=== PATIENT | female | born 1970 | race Caucasian/White ===

== ENCOUNTER 2017-12-14 20:11 | Emergency (ER) | payer SELFPAY ==
[2017-12-14] MEDS ORDERED: Ketorolac 60 MG/2 ML SDV IM ONE (20:35)
--- NOTE | 2017-12-14 20:54 | EDM.PDOC ---
ED HPI GENERAL MEDICAL PROBLEM - General Chief Complaint: Upper Extremity Injury/Pain Stated Complaint: NECK PAIN Time Seen by Provider: 12/14/17 20:24 Source of Information: Reports: Patient History Limitations: Reports: No Limitations - History of Present Illness INITIAL COMMENTS - FREE TEXT/NARRATIVE: HISTORY AND PHYSICAL: History of present illness: Patient is a 47-year-old female who presents to the emergency room with complaints of right neck pain that radiates into her shoulder. She states she has been sleeping on the ground and believes that she "pinched nerve". She denies any injury, trauma or falls. Pain is increased with palpation of the trapezius muscle. She denies any numbness or tingling to the distal extremity. She denies any headache, change in vision, dizziness. She denies any fever, chills, chest pain, shortness of breath or cough. Denies any abdominal pain, nausea, vomiting, diarrhea or constipation. Eyes any chance of . Review of systems: As per history of present illness and below otherwise all systems reviewed and negative. Past medical history: As per history of present illness and as reviewed below otherwise noncontributory. Surgical history: As per history of present illness and as reviewed below otherwise noncontributory. Social history: No reported history of drug or alcohol abuse. Family history: As per history of present illness and as reviewed below otherwise noncontributory. Physical exam: General: Developed and well-nourished 47-year-old female. Alert and oriented. Nontoxic appearing and in no acute distress. HEENT: Atraumatic, normocephalic, pupils equal and reactive bilaterally, negative for conjunctival pallor or scleral icterus, mucous membranes moist, throat clear, neck supple, nontender, trachea midline. No drooling or trismus noted. No meningeal signs Lungs: Clear to auscultation, breath sounds equal bilaterally, chest nontender. Heart: S1S2, regular rate and rhythm without overt murmur Abdomen: Soft, nondistended, nontender. Negative for masses or hepatosplenomegaly. Negative for costovertebral tenderness. Pelvis: Stable nontender. Genitourinary: Deferred. Rectal: Deferred. C-spine/Back: No pinpoint vertebral tenderness upon palpation. No crepitus, step -offs or obvious deformities. Patient is ambulatory into the room and is able to walk on her heels and toes. Denies any numbness or tingling to the distal extremities. Denies any urinary or fecal incontinence. Does have muscular tenderness to the right trapezius extending into the supraspinatus muscle. She has strong radial pulse. Skin: Intact, warm, dry. No lesions or rashes noted. Extremities: Atraumatic, full range of motion without difficulty or deficits, negative for cords or calf pain. Neurovascular unremarkable. Neuro: Awake, alert, oriented. Cranial nerves II through XII unremarkable. Cerebellum unremarkable. Motor and sensory unremarkable throughout. Exam nonfocal. Notes: Patient is requesting something for pain at this time. I will give her Norflex and Toradol IM. She is agreeable to receiving an x-ray. Nursing staff noted that after the patient received the IM Toradol and Norflex she requested to be discharged to home as she felt that her child she had brought with her needed to use. She did not want to have the x-ray completed. Patient is signing out AGAINST MEDICAL ADVICE. Diagnostics: X-ray Therapeutics: Norflex, Toradol Impression: Neck pain Plan: Left AGAINST MEDICAL ADVICE Definitive disposition and diagnosis as appropriate pending reevaluation and review of above. Onset: Today Duration: Day(s): Location: Reports: Neck Right Shoulder Pain Score (Numeric/FACES): 8 - Related Data Allergies Allergy/AdvReac Type Severity Reaction Status Date / Time Penicillins Allergy Hives Verified 12/14/17 20:24 Home Meds: Home Meds Sertraline HCl [Zoloft] 50 mg PO DAILY 12/14/17 [History] Past Medical History - Past Health History Medical/Surgical History: Denies Medical/Surgical History Social & Family History - Tobacco Use Smoking Status *Q: Never Smoker Review of Systems - Review of Systems Review Of Systems: ROS reveals no pertinent complaints other than HPI. ED EXAM, GENERAL - Physical Exam Exam: See Below (See dictation) Course - Vital Signs Last Recorded V/S: Last Vital Signs Temp 97.6 F 12/14/17 20:26 Pulse 83 12/14/17 20:26 Resp 18 12/14/17 20:26 BP 150/72 H 12/14/17 20:26 Pulse Ox 96 12/14/17 20:26 - Orders/Labs/Meds Orders: Active Orders 24 hr Category Date Time Status Cervical Spine 2V or 3V [CR] Stat Exams 12/14/17 20:35 Ordered Meds: Medications Discontinued Medications Generic Name Dose Route Start Last Admin Trade Name Yonathan PRN Reason Stop Dose Admin Ketorolac Tromethamine 60 mg 12/14/17 20:35 12/14/17 20:40 Toradol IM 12/14/17 20:36 60 mg ONETIME ONE Administration Orphenadrine Citrate 60 mg 12/14/17 20:35 12/14/17 20:40 Norflex IM 12/14/17 20:36 60 mg NOW STA Administration Departure - Departure Time of Disposition: 20:53 Disposition: Against Medical Advice 07 Clinical Impression: Neck pain - Discharge Information Referrals: PCP,None [Primary Care Provider] - - My Orders Last 24 Hours: My Active Orders 12/14/17 20:35 Cervical Spine 2V or 3V [CR] Stat - Assessment/Plan Last 24 Hours: My Active Orders 12/14/17 20:35 Cervical Spine 2V or 3V [CR] Stat
== END 2017-12-14 20:49 | disposition left against medical advice (07) ==
LOC: MW.ED 20:11
DX: M54.2 Cervicalgia (principal); Z88.0 Allergy status to penicillin
CPT/HCPCS: 96372; 99283; J1885; J2360

== ENCOUNTER 2019-05-10 06:48 | Emergency (ER) | payer SELFPAY ==
--- NOTE | 2019-05-10 06:53 | EDM.PDOC ---
ED HPI GENERAL MEDICAL PROBLEM - General Stated Complaint: HEADACHES AND DIZZINESS Time Seen by Provider: 05/10/19 06:50 Source of Information: Reports: Patient History Limitations: Reports: No Limitations - History of Present Illness INITIAL COMMENTS - FREE TEXT/NARRATIVE: History of present illness: []Patient had an episode last night where she had a headache, dizziness, blurry vision and a brief period of inability to find her words. She denies any numbness, tingling, weakness in her extremities, nausea, vomiting, or any recent illnesses. She does have asthma and lately she is waking up in the middle the night gasping for air. She has not had any coughing or chest pain. Patient denies she is a smoker. She is raising her daughters 3-year-old and feeling very stressed with a new job and her daughter's addiction to methamphetamines. Patient's symptoms are very mild now. Review of systems: As per history of present illness and below otherwise all systems reviewed and negative. Past medical history: As per history of present illness and as reviewed below otherwise noncontributory. Surgical history: As per history of present illness and as reviewed below otherwise noncontributory. Social history: No reported history of drug or alcohol abuse. Family history: As per history of present illness and as reviewed below otherwise noncontributory. Physical exam: General: Well developed, well nourished in NAD HEENT: Atraumatic, normocephalic, pupils reactive, negative for conjunctival pallor or scleral icterus, mucous membranes moist, throat clear, neck supple, nontender, trachea midline. TMs clear, no sinus tenderness to palpation Lungs: Clear to auscultation, breath sounds equal bilaterally, chest nontender. Heart: S1S2, regular, negative for clicks, rubs, or JVD. Abdomen: NABS, Soft, nondistended, nontender. Negative for masses or hepatosplenomegaly. Negative for costovertebral tenderness. Pelvis: Stable nontender. Genitourinary: Deferred. Rectal: Deferred. Extremities: Atraumatic, negative for cords or calf pain. Neurovascular unremarkable. Neuro: Awake, alert, oriented. Cranial nerves II through XII unremarkable. Cerebellum unremarkable. Motor and sensory unremarkable throughout. Exam nonfocal. Skin:warm and dry Diagnostics: CT head-negative chronic maxillary sinus disease, CBC, chemistry, EKG, chest x- ray Therapeutics: none ED Course: stable, discussed with Dr. Greer, she requested a referral be sent to her and she can follow-up with primary care for outpatient workup. Impression: tia Prescriptions: none Plan: Take meds as directed, follow up with your primary care physician, return to ER if symptoms worsen or change. Definitive disposition and diagnosis as appropriate pending reevaluation and review of above. - Related Data Allergies Allergy/AdvReac Type Severity Reaction Status Date / Time Penicillins Allergy Hives Verified 05/10/19 06:56 Home Meds: Home Meds . [No Known Home Meds] 05/10/19 [History] Past Medical History - Past Health History Medical/Surgical History: Denies Medical/Surgical History ED ROS GENERAL - Review of Systems Review Of Systems: See Below - Physical Exam Exam: See Below Course - Vital Signs Last Recorded V/S: Last Vital Signs Temp 96.6 F 05/10/19 06:57 Pulse 75 05/10/19 06:57 Resp 18 05/10/19 06:57 BP 128/68 05/10/19 06:57 Pulse Ox 91 L 05/10/19 06:57 - Orders/Labs/Meds Orders: Active Orders 24 hr Category Date Time Status EKG Documentation Completion [RC] STAT Care 05/10/19 07:19 Active UA W/MICROSCOPIC [URIN] Stat Lab 05/10/19 07:03 Ordered Sodium Chloride 0.9% [Saline Flush] Med 05/10/19 07:03 Active 10 ml FLUSH ASDIRECTED PRN Sodium Chloride 0.9% [Saline Flush] Med 05/10/19 07:03 Active 2.5 ml FLUSH ASDIRECTED PRN Saline Lock Insert [OM.PC] Stat Oth 05/10/19 07:03 Ordered Medication Orders Sodium Chloride (Saline Flush) 10 ml FLUSH ASDIRECTED PRN PRN Reason: Keep Vein Open Last Admin: 05/10/19 07:36 Dose: 10 ml Sodium Chloride (Saline Flush) 2.5 ml FLUSH ASDIRECTED PRN PRN Reason: Keep Vein Open Last Admin: 05/10/19 07:36 Dose: 2.5 ml Labs: Laboratory Tests 05/10/19 05/10/19 05/10/19 Range/Units 07:30 07:30 07:30 WBC 9.59 (4.0-11.0) K/uL RBC 4.71 (4.30-5.90) M/uL Hgb 12.1 (12.0-16.0) g/dL Hct 38.0 (36.0-46.0) % MCV 80.7 (80.0-98.0) fL MCH 25.7 L (27.0-32.0) pg MCHC 31.8 (31.0-37.0) g/dL RDW Std Deviation 51.1 (28.0-62.0) fl RDW Coeff of Shawn 17 H (11.0-15.0) % Plt Count 266 (150-400) K/uL MPV 10.00 (7.40-12.00) fL Neut % (Auto) 55.6 (48.0-80.0) % Lymph % (Auto) 28.8 (16.0-40.0) % Kershaw % (Auto) 9.6 (0.0-15.0) % Eos % (Auto) 5.5 (0.0-7.0) % Baso % (Auto) 0.5 (0.0-1.5) % Neut # (Auto) 5.3 (1.4-5.7) K/uL Lymph # (Auto) 2.8 H (0.6-2.4) K/uL Kershaw # (Auto) 0.9 H (0.0-0.8) K/uL Eos # (Auto) 0.5 (0.0-0.7) K/uL Baso # (Auto) 0.1 (0.0-0.1) K/uL Nucleated RBC % 0.0 /100WBC Nucleated RBCs # 0 K/uL Sodium 143 (136-145) mmol/L Potassium 3.6 (3.5-5.1) mmol/L Chloride 107 (98-107) mmol/L Carbon Dioxide 28.7 (21.0-32.0) mmol/L BUN 10 (7.0-18.0) mg/dL Creatinine 0.8 (0.6-1.0) mg/dL Est Cr Clr Drug Dosing 77.38 mL/min Estimated GFR (MDRD) > 60.0 ml/min Glucose 107 H (74-106) mg/dL Calcium 8.9 (8.5-10.1) mg/dL Total Bilirubin 0.4 (0.2-1.0) mg/dL AST 17 (15-37) IU/L ALT 14 (14-63) IU/L Alkaline Phosphatase 98 (46-116) U/L Total Protein 7.5 (6.4-8.2) g/dL Albumin 4.0 (3.4-5.0) g/dL Globulin 3.5 (2.6-4.0) g/dL Albumin/Globulin Ratio 1.1 (0.9-1.6) TSH 3rd Generation 1.12 (0.36-3.74) uIU/mL Meds: Medications Generic Name Dose Route Start Last Admin Trade Name Freq PRN Reason Stop Dose Admin Sodium Chloride 10 ml 05/10/19 07:03 05/10/19 07:36 Saline Flush FLUSH 10 ml ASDIRECTED PRN Administration Keep Vein Open Sodium Chloride 2.5 ml 05/10/19 07:03 05/10/19 07:36 Saline Flush FLUSH 2.5 ml ASDIRECTED PRN Administration Keep Vein Open Discontinued Medications Generic Name Dose Route Start Last Admin Trade Name Freq PRN Reason Stop Dose Admin Sodium Chloride 1,000 mls @ 999 mls/hr 05/10/19 07:19 05/10/19 07:36 Normal Saline IV 05/10/19 08:19 999 mls/hr .Bolus ONE Administration Departure - Departure Time of Disposition: 08:30 Disposition: Home, Self-Care 01 Condition: Good Clinical Impression: TIA (transient ischemic attack) - Discharge Information *PRESCRIPTION DRUG MONITORING PROGRAM REVIEWED*: Not Applicable *COPY OF PRESCRIPTION DRUG MONITORING REPORT IN PATIENT CHRISSY: Not Applicable Referrals: PCP,None [Primary Care Provider] - Ellen Greer MD [Physician] - Additional Instructions: The following information is given to patients seen in the emergency department who are being discharged to home. This information is to outline your options for follow-up care. We provide all patients seen in our emergency department with a follow-up referral. The need for follow-up, as well as the timing and circumstances, are variable depending upon the specifics of your emergency department visit. If you don't have a primary care physician on staff, we will provide you with a referral. We always advise you to contact your personal physician following an emergency department visit to inform them of the circumstance of the visit and for follow-up with them and/or the need for any referrals to a consulting specialist. The emergency department will also refer you to a specialist when appropriate. This referral assures that you have the opportunity for follow-up care with a specialist. All of these measure are taken in an effort to provide you with optimal care, which includes your follow-up. Under all circumstances we always encourage you to contact your private physician who remains a resource for coordinating your care. When calling for follow-up care, please make the office aware that this follow-up is from your recent emergency room visit. If for any reason you are refused follow-up, please contact the [facility] Emergency Department at and asked to speak to the emergency department charge nurse. Take meds as directed, follow up with your primary care physician, return to ER if symptoms worsen or change. [facility] Primary Care [address] [place] [id number] [facility] Specialty Care - Neurology Professional Building [address] [place] [address], [address] [place] [address] - My Orders Last 24 Hours: My Active Orders 05/10/19 07:03 UA W/MICROSCOPIC [URIN] Stat Sodium Chloride 0.9% [Saline Flush] 10 ml FLUSH ASDIRECTED PRN Sodium Chloride 0.9% [Saline Flush] 2.5 ml FLUSH ASDIRECTED PRN Saline Lock Insert [OM.PC] Stat 05/10/19 07:19 EKG Documentation Completion [RC] STAT - Assessment/Plan Last 24 Hours: My Active Orders 05/10/19 07:03 UA W/MICROSCOPIC [URIN] Stat Sodium Chloride 0.9% [Saline Flush] 10 ml FLUSH ASDIRECTED PRN Sodium Chloride 0.9% [Saline Flush] 2.5 ml FLUSH ASDIRECTED PRN Saline Lock Insert [OM.PC] Stat 05/10/19 07:19 EKG Documentation Completion [RC] STAT
[2019-05-10] MEDS ORDERED: Sodium Chloride 0.9% 10 ML Syringe FLUSH PRN (07:03)
[2019-05-10] MEDS ORDERED: Sodium Chloride 0.9% 2.5 ML Syringe FLUSH PRN (07:03)
[2019-05-10] MEDS ORDERED: Sodium Chloride 0.9% 1,000 ML IV ONE (07:19)
[2019-05-10 08:03] LABS: BLOOD UREA NITROGEN,BUN 10 mg/dL (7.0-18.0); CARBON DIOXIDE,CO2 28.7 mmol/L (21.0-32.0); CHLORIDE,CL 107 mmol/L (98-107); GLUCOSE RANDOM 107 mg/dL (74-106); POTASSIUM,K 3.6 mmol/L (3.5-5.1); SODIUM,NA 143 mmol/L (136-145)
--- NOTE | 2019-05-10 08:10 | CR ---
INDICATION: Dizziness COMPARISON: none TECHNIQUE: PA chest performed at 7:46 a.m. FINDINGS: The lungs are clear. There is no evidence of pneumothorax. The heart, mediastinum and pulmonary vessels are of normal size. There is no evidence of pleural fluid. IMPRESSION: Negative chest. Dictated by Moises Wang MD @ May 10 2019 8:08AM Signed by Dr. Moises Wang @ May 10 2019 8:08AM
--- NOTE | 2019-05-10 08:15 | CT ---
INDICATION: Dizziness COMPARISON: none TECHNIQUE: A CT volumetric acquisition was performed of the brain without IV contrast. FINDINGS: There is no evidence of a subdural or epidural hematoma. There is no evidence of subarachnoid hemorrhage or intraparenchymal bleeding. The CT images reveal a normal appearance of the cerebral ventricles and basal cisterns. There is no evidence of localized tissue infarction or mass effect. There is normal chaves white matter differentiation. The mastoid air cells and middle ear cavities are clear. The calvarium appears intact. There is inflammatory mucoperiosteal thickening within the left maxillary sinus and there is a small mucous retention cysts within the floor of the right maxillary sinus. The ethmoid and sphenoid air cells are clear. The frontal air cells are incompletely developed. IMPRESSION: No evidence of intracranial hemorrhage, infarct or mass effect. Inflammatory changes noted within the maxillary sinuses. Please note that all CT scans at this facility use dose modulation, iterative reconstruction, and/or weight-based dosing when appropriate to reduce radiation dose to as low as reasonably achievable. Dictated by Moises Wang MD @ May 10 2019 8:07AM Signed by Dr. Moises Wang @ May 10 2019 8:14AM
== END 2019-05-10 08:50 | disposition home or self-care (01) ==
LOC: MW.ED 06:48
DX: G45.9 Transient cerebral ischemic attack, unspecified (principal); Z88.0 Allergy status to penicillin
CPT/HCPCS: 36415; 70450; 71045; 80053; 84443; 85025; 93005; 96360; 99284; J7040; 99283

== ENCOUNTER 2022-10-26 00:21 | Inpatient (IN) | payer MEDICAID ==
[2022-10-26] MEDS ORDERED: LORazepam 2 MG/ML SDV IVPUSH ONE (00:27)
[2022-10-26] MEDS ORDERED: Sodium Chloride 0.9% 2.5 ML Syringe FLUSH PRN (00:27)
[2022-10-26] MEDS ORDERED: Albuterol/Ipratropium 3.0-0.5 MG/3 ML Neb Soln NEB STA (00:27)
[2022-10-26] MEDS ORDERED: Sodium Chloride 0.9% 10 ML Syringe FLUSH PRN (00:27)
[2022-10-26] MEDS ORDERED: Albuterol 0.083% 2.5 MG/3 ML Neb Soln NEB STA (00:31)
[2022-10-26 01:06] LABS: BLOOD UREA NITROGEN,BUN 13 mg/dL (7.0-18.0); CARBON DIOXIDE,CO2 20.2 mmol/L (21.0-32.0); CHLORIDE,CL 103 mmol/L (98-107); GLUCOSE RANDOM 130 mg/dL (74-106); POTASSIUM,K 3.7 mmol/L (3.5-5.1); SODIUM,NA 142 mmol/L (136-145)
[2022-10-26 01:20] LABS: ESTIMATED GFR 61 mL/min (>60)
[2022-10-26 01:24] LABS: CORONAVIRUS COVID-19 NAA NEGATIVE (NEGATIVE); INFLUENZA A NAA NEGATIVE (NEGATIVE); INFLUENZA B NAA NEGATIVE (NEGATIVE)
[2022-10-26] MEDS ORDERED: Magnesium Sulfate/Water 2 GM in Premix Bag 1 BAG IV STA (02:06)
[2022-10-26] MEDS ORDERED: Sodium Chloride 0.9% 2,000 ML IV ONE (03:14)
[2022-10-26] MEDS ORDERED: Acetaminophen 325 MG Tab PO PRN (03:50)
[2022-10-26] MEDS ORDERED: Ondansetron 4 MG/2 ML SDV IVPUSH PRN (03:50)
[2022-10-26] MEDS ORDERED: Ondansetron 4 MG Tab.DIS PO PRN (03:50)
[2022-10-26] MEDS ORDERED: Albuterol/Ipratropium 3.0-0.5 MG/3 ML Neb Soln NEB PRN (03:50)
[2022-10-26] MEDS ORDERED: Sodium Chloride 0.9% 1,000 ML IV SCH ×2 (04:15→11:15)
[2022-10-26] MEDS ORDERED: Potassium Phosphates 20 MMOLE in Sodium Chloride 0.9% 500 ML IV ONE ×2 (05:00→08:00)
[2022-10-26] MEDS ORDERED: Potassium Phosphates 3 mMole/ML 15 ML SDV IV ONE (05:00)
[2022-10-26] MEDS ORDERED: Escitalopram 10 MG Tab PO SCH (09:00)
[2022-10-26] MEDS ORDERED: Enoxaparin 40 MG/0.4 ML Syringe SUBCUT SCH (09:00)
== END 2022-10-26 14:00 | disposition left against medical advice (07) | DRG 189 ==
LOC: EDBD 00:21 → MW.ED 00:21 → MERGE 02:22 → MW.MS 02:22
PROVIDERS: ADMIT Hospitalist; ATTEND Hospitalist
PROC: 5A09357 Assistance with Respiratory Ventilation, Less than 24 Consecutive Hours, Continuous Positive Airway Pressure (ICD-10-PCS; principal; 2022-10-26)
DX: J96.01 Acute respiratory failure with hypoxia (principal); R65.10 Systemic inflammatory response syndrome (SIRS) of non-infectious origin without acute organ dysfunction; E87.20 Acidosis, unspecified; J45.902 Unspecified asthma with status asthmaticus; F17.210 Nicotine dependence, cigarettes, uncomplicated; Z20.822 Contact with and (suspected) exposure to COVID-19; F41.9 Anxiety disorder, unspecified; F32.A Depression, unspecified; F12.90 Cannabis use, unspecified, uncomplicated; E83.39 Other disorders of phosphorus metabolism; Z88.0 Allergy status to penicillin
CPT/HCPCS: 0240U; 36415; 36600; 71045; 71045-26; 80053; 80305-QW; 80307; 81003; 82803; 83605; 83735; 83880; 84100; 84484; 85025; 85379; 87040; 93005; 93010; 94640; 96365; 96375; 99235; 99285-25; 99291; 99292; A9270-GY; J1650; J2060; J3475; J3490; J7030; J7040; J7620-GY

== ENCOUNTER 2024-08-14 13:11 | Emergency (ER) | payer SELFPAY ==
[2024-08-14] MEDS: Acetaminophen/oxyCODONE 325-5 MG Tab PO ONE (13:48)
[2024-08-14] MEDS: Lidocaine 4% Patch TOP STA (13:51)
[2024-08-14] MEDS: methylPREDNISolone Sodium Succinate 125 MG/2 ML SDV IM ONE (13:52)
== END 2024-08-14 14:31 | disposition home or self-care (01) ==
LOC: MW.ED 13:11
DX: M54.41 Lumbago with sciatica, right side (principal); E11.9 Type 2 diabetes mellitus without complications; Z88.0 Allergy status to penicillin; Z79.84 Long term (current) use of oral hypoglycemic drugs; Z79.899 Other long term (current) drug therapy
CPT/HCPCS: 96372; 99283; A9270; J2919